=== PATIENT | female | born 1985 | race Hispanic/Latino ===

== ENCOUNTER 2024-03-27 20:19 | Emergency (ER) | payer BC, OTHER ==
[~2024-03-27] VITALS: Ht 149.9 cm; Wt 93.4 kg
[~2024-03-27 20:19] MED LIST: AMLO-257 PO; CHOL200074 PO; CHROMIUM PICO200 MCG PO; MILK1CAP3 PO; MULT-1203 PO; NIAC500T22 PO; NORG7TAB PO; [UNRECOGNIZED DRUG - REMARK] PO
[2024-03-27 20:45] LABS: BASOPHILS # (AUTO) 0.08 K/uL (0.00-0.20); BASOPHILS % (AUTO) 0.7 % (0.0-5.0); EOSINOPHILS # (AUTO) 0.12 K/uL (0.00-0.70); HEMATOCRIT 43.1 % (36-48); IMMATURE GRANULOCYTE ABSOLUTE 0.09 K/uL (0-1); LYMPHOCYTES # (AUTO) 2.1 K/uL (1.0-4.8); LYMPHOCYTES % (AUTO) 17.6 % (21.0-51.0); MEAN CORPUSCULAR HEMOGLOBIN 29.7 pg (27.0-33.0); MEAN CORPUSCULAR HGB CONC 34.3 g/dL (32.0-36.0); MEAN CORPUSCULAR VOLUME 86.4 fL (79-99); MONOCYTES # (AUTO) 0.6 K/uL (0.1-1.0); MONOCYTES % (AUTO) 5.4 % (3.0-13.0); NEUTROPHILS # (AUTO) 8.7 K/uL (1.8-7.7); NEUTROPHILS % (AUTO) 74.5 % (40.0-77.0); PLATELET COUNT (AUTO) 350 K/uL (130-400); RED BLOOD CELL COUNT(AUTO) 4.99 MIL/uL (4.00-5.50); RED CELL DISTRIBUTION WIDTH 12.1 % (11.0-15.5); WHITE BLOOD COUNT (AUTO) 11.7 K/uL (4.8-10.8)
[2024-03-27 20:46] LABS: APPEARANCE,URINE CLEAR (CLEAR); BILIRUBIN,URINE NEGATIVE (NEGATIVE); COLOR,URINE LIGHT-YELLOW (YELLOW); GLUCOSE, URINE (UA) NEGATIVE (NEGATIVE); KETONES,URINE 5 mg/dL (NEGATIVE); LEUKOCYTE ESTERASE ,URINE 500 Leu/uL (NEGATIVE); NITRATE,URINE NEGATIVE (NEGATIVE); OCCULT BLOOD,URINE MODERATE (NEGATIVE); PH,URINE 5.5 (5.0-8.0); PROTEIN,URINE NEGATIVE (NEGATIVE); UROBILINOGEN,URINE 0.2 mg/dL (0.2-1.0)
[2024-03-27 20:47] LABS: ADD UA MICROSCOPIC YES
[2024-03-27 20:49] LABS: MUCUS,URINE RARE LPF (None Seen); SQUAMOUS EPITHELIAL CELL,UR FEW /HPF (0-2)
[2024-03-27 20:55] LABS: CREATININE 1.3 mg/dL (0.5-1.0); POTASSIUM 4.2 mmol/L (3.5-5.1)
[2024-03-27] MEDS: morPHINE 4 MG SYG IVP ONE (21:51)
[2024-03-27] MEDS: 0.9% NACL 500ML IV.SOLN 500 ML IV ONE (21:51)
[2024-03-27] MEDS: ondanSETRON 4MG INJ IVP ONE (21:51)
[2024-03-27 23:50] VITALS: BP 117/79; PULSE 87; RESP 16; TEMP 98.5; O2SAT 96
[2024-03-27] MEDS ORDERED: NITR100C PO (23:54)
[2024-03-27] MEDS ORDERED: ONDA-243 PO (23:54)
== END 2024-03-28 00:36 | disposition admitted as inpatient to this hospital (09) ==
LOC: EDH 20:19
DX: N39.0 Urinary tract infection, site not specified (principal); E86.0 Dehydration; E65 Localized adiposity; I10 Essential (primary) hypertension; Z79.899 Other long term (current) drug therapy; Z98.890 Other specified postprocedural states
CPT/HCPCS: 99284; 74176; 96374; 96361; 96375; 80048; 83690; 85025; 87086; 81001; 81025; 36415; J7040; J2405; J2270